=== PATIENT | female | born 1955 | race Caucasian/White ===

== ENCOUNTER 2022-09-08 22:31 | Emergency (ER) | payer OTHER, SELFPAY ==
[2022-09-08] VITALS (13 sets, daily range): BP systolic 140–158; BP diastolic 57–93; PULSE 76–89; RESP 11–27; TEMP 36.7; O2SAT 95–99
[2022-09-08 22:51] LABS: Bilirubin Negative (Negative); Blood Negative (Negative); Clarity Clear (Clear); Glucose Negative (Negative); Ketones 40 mg/dL (Negative); Leukocyte Esterase Trace (Negative); Nitrite Negative (Negative); Specific Gravity 1.025 (1.005-1.025); Urobilinogen 0.2 mg/dL (Up to 0.2); pH 6.5 (5-8)
[2022-09-08 22:57] LABS: Bacteria Few HPF (Negative); C & S Indicated? No/Sq. Contamination; Casts Negative LPF (Negative); Crystals Negative HPF (Negative); Epithelial Cells Moderate HPF (Negative); Mucus Negative (Negative); RBC 0-2 HPF (0-2); WBC 0-2 HPF (0-5)
--- NOTE | 2022-09-08 23:00 | DI.CT_ITS ---
Exam(s) CT RENAL COLIC WO EXAM: CT RENAL COLIC WO CLINICAL HISTORY: right flank pain, hx of stones. TECHNIQUE: Imaging Protocol: Axial computed tomography images with coronal and sagittal reformatted images were created and reviewed CONTRAST MATERIAL: Intravenous: none Oral: None COMPARISON: No exams were available for comparison FINDINGS: VISUALIZED LUNG BASES: No nodules nor pleural effusions evident. ABDOMEN: There is no ascites. LIVER: There are no obvious focal hepatic lesions evident of this noninfused study. GALLBLADDER/BILIARY: Gallbladder surgically absent. CBD is not dilated. PANCREAS: No evidence of pancreatic mass nor dilatation of the pancreatic duct. SPLEEN: Spleen is not enlarged. No obvious intrasplenic lesions. ADRENALS: There are no significant adrenal masses. KIDNEYS:There are multiple small calculi in both kidneys. Also a few bilateral parapelvic cysts. Ho wever, there is also hydroureter on the right side and there is an obstructing calculus at the right ureterovesical junction which measures approximately 6 mm. There are no calculi within the actual ur inary bladder. Left ureterovesical junction is unremarkable.. ABDOMINAL AORTA: Abdominal aorta is not enlarged. LYMPH NODES: There is no retroperitoneal nor paraaortic adenopathy. ABDOMINAL WALL: No evidence of significant anterior abdominal wall nor inguinal hernia. GI: There is no evidence of bowel obstruction, free air, nor abscess. PELVIS: LYMPH NODES: There is no intrapelvic nor inguinal adenopathy. GI: No evidence of appendicitis.No evidence of sigmoid diverticulitis. URINARY BLADDER: No calculi nor obvious masses evident REPRODUCTIVE: Uterus and adnexal regions unremarkable. OSSEOUS: No significant osseous lesions. IMPRESSION: 1. Bilateral nephrolithiasis. Multiple calculi seen in both kidneys. Consider possible medullary sp onge kidney. 2. There is an obstructing 6 millimeter calculus at the right ureterovesical junction with dilatation of the right ureter and upper collecting system above this level. 3. Opposite-left ureter appears unremarkable. RADIATION DOSE DELIVERED: 727.68mGy.cm Total DLP DATA REPOSITORY: All CT scans at this facility are submitted to the National Radiology Data Registry (NRDR) Dose Index Registry (DIR) with the [employer] (A[employer]). RADIATION OPTIMIZATION: All CT scans at this facility use at least one of these dose optimization te chniques: automated exposure control; mA and/or kV adjustment per patient size (includes targeted exa ms where dose is matched to clinical indication); or iterative reconstruction.
--- NOTE | 2022-09-08 23:12 | ED.GENADUL_ITS ---
Discharge Plan Disposition Patient Disposition: Home Condition: Good Discharge Details Clinical Impression: Right kidney stone Primary Care Provider: Saul Ng ED Provider: Markell Lovelace Home Meds and New Rx's Prescriptions: New tamsulosin [Flomax] 0.4 mg capsule 0.4 mg PO DAILY Qty: 7 0RF ketorolac 10 mg tablet 10 mg PO TID 5 Days Qty: 15 0RF No Action irbesartan-hydrochlorothiazide 150-12.5 mg Tablet 1 tab PO DAILY oxycodone-acetaminophen 5-325 mg Tablet 1 tab PO TID PRN Discharge Instructions Instructions: Kidney Stones (ED) Additional Instructions: At this time you have a kidney stone that is 5 mm and right about to pass into the bladder. Please take the ketorolac and Flomax as directed until it passes. Please use a strainer so that you can see when the stone has passed. You can continue to take your oxycodone as needed. If you notice any worsening of your symptoms, or any new symptoms such as vomiting, diarrhea, fever, chills, shortness of breath, chest pain, numbness, weakness, or fainting , please return immediately to the emergency department for reevaluation. Please follow up with your primary care provider as soon as possible for reassessment and reevaluation. As always, it was a pleasure participating in your medical care today. Medical Decision Making 67-year-old female with a past medical history of medullary sponge kidney, cholecystectomy, tubal ligation, 2 C-sections, previous multiple kidney stones, presents today for right flank pain. Patient states that it started about 4 days ago. It was mild on initial onset, but has gradually worsened. She states that it feels very similar to her previous kidney stones. She admits to nausea. She denies diarrhea. She denies any urinary change otherwise. No fever or chills. She denies any chest pain or shortness of breath. No other complaints at this time. No other modifying factors. Physical exam demonstrates an in pain individual, right-sided CVA tenderness. Abdomen itself is nonacute nonsurgical in nature. Concern for kidney stone, less likely appendicitis. We will treat the patient's pain, gently hydrate, get a CT scan for further assessment, monitor closely and reassess. 1:01 AM Laboratory work-up demonstrates stable electrolytes, mildly elevated white count but no bandemia. Renal function demonstrates a creatinine of 1.2. Urinalysis shows no significant WBCs, or nitrites. Only trace leuk esterase. No evidence of infection clinically. On reassessment patient feels notably better, she feels well. CT scan shows evidence of a 5 mm calculus at the right ureterovesicular junction. Patient feels well and would like to go home. No indication for admission or stenting at this time. We will give Flomax for home, recommend continued hydration. No clinical evidence of a septic stone. Discussed red flags for which to return. I have extensively reviewed the treatment plan and discharge instructions with the patient and their family. I have addressed all patient concerns at this time. The patient and family was made aware of what symptoms to monitor for that would warrant a return to the emergency department. Discussed the plan with the patient and family, they demonstrate verbal understanding and agreement with our assessment and plan at this time. The documentation in this chart was dictated using [employer] dictation software. Please excuse any dictation errors. FINDINGS: Lungs: Minimal dependent subsegmental atelectasis. Liver: No hepatic masses on noncontrast imaging. Gallbladder and bile ducts: Cholecystectomy. Typical caliber of the CBD for a post cholecystectomy patient. Pancreas: No gross pathology in the pancreas on noncontrast imaging. Spleen: No splenomegaly or focal lesions. Adrenal glands: Miniscule incidental benign left adrenal angiomyolipoma. Kidneys and ureters: 5 mm calculus at the right ureteral vesicular junction causing moderate to severe right hydronephrosis. Bilateral nephrolithiasis subcentimeter and nonobstructive on the left. Bilateral parapelvic cysts are present in both kidneys. No left hydronephrosis. Stomach and bowel: No gross pathology in the small bowel without IV contrast. No colitis or significant diverticular disease. Appendix: No evidence of appendicitis Intraperitoneal space: No free air. No significant fluid collection. Vasculature: No abdominal aortic aneurysm. Lymph nodes: No significantly enlarged lymph nodes. Urinary bladder: Unremarkable as visualized. Reproductive: Unremarkable as visualized. Bones/joints: Mild thoracolumbar levoscoliosis. Minor chronic loss of height superior L4 endplate. Degenerative changes in the spine. No acute fracture or subluxation. Soft tissues: Tiny fat-containing umbilical hernia. IMPRESSION: 1. 5 mm calculus at the right ureteral vesicular junction causing moderate to severe right hydronephrosis. 2. Bilateral nephrolithiasis subcentimeter and nonobstructive on the left. 3. Incidental findings as described. Thank you for allowing us to participate in the care of your patient. Dictated and Authenticated by: Lluvia Rios MD 09/09/2022 12:54 AM Eastern Time ([place] & [place]) HPI General Date/Time Provider Initiated Documentation: 09/08/22 22:33 . HPI Narrative: 67-year-old female with a past medical history of medullary sponge kidney, cholecystectomy, tubal ligation, 2 C-sections, previous multiple kidney stones, presents today for right flank pain. Patient states that it started about 4 days ago. It was mild on initial onset, but has gradually worsened. She states that it feels very similar to her previous kidney stones. She admits to nausea. She denies diarrhea. She denies any urinary change otherwise. No fever or chills. She denies any chest pain or shortness of breath. No other complaints at this time. No other modifying factors. Related Data Home Medications Medication Instructions Recorded Confirmed irbesartan 150 1 tab PO DAILY 09/08/22 09/08/22 mg-hydrochlorothiazide 12.5 mg tablet oxycodone-acetaminophen 5 mg-325 1 tab PO TID PRN 09/08/22 09/08/22 mg tablet ketorolac 10 mg tablet 10 mg PO TID 5 days #15 tabs 09/09/22 tamsulosin 0.4 mg capsule (Flomax) 0.4 mg PO DAILY #7 caps 09/09/22 Previous Rx's Medication Instructions Recorded ketorolac 10 mg tablet 10 mg PO TID 5 days #15 tabs 09/09/22 tamsulosin 0.4 mg capsule (Flomax) 0.4 mg PO DAILY #7 caps 09/09/22 Allergies Allergy/AdvReac Type Severity Reaction Status Date / Time No Known Allergies Allergy Unverified 09/08/22 22:48 General Stated Complaint: FlankPain SUSAN: 3 Review of Systems All systems reviewed & are unremarkable except as noted in HPI and below PFSH All Active Problems (Updated 09/09/22 @ 00:58 by Markell Lovelace DO) Right kidney stone (Acute) Social History Smoking/Tobacco Use Status: Never Smoking risk assessment performed?: Yes Substance use type: does not use Exam Narrative Exam Narrative: 1.Const: Well-nourished, Well-developed, appearing stated age 2.Eyes: PERRL, no conjunctival injection, and symmetrical lids. 3.ENT: Atraumatic external nose and ears. Moist MM. Neck: Symmetric, trachea midline, No thyromegaly. 4.CVS: +S1/S2, No murmurs or gallops. Peripheral pulses 2+ and equal in all extremities. Brisk capillary refill in all extremities. 5.RESP: Unlabored respiratory effort. Clear to auscultation bilaterally. No wheezes rales or rhonchi 6.GI: Soft, Nontender/Nondistended, mild right CVA tenderness. No guarding or rebound. 7.MSK: Normocephalic/Atraumatic, Extremities w/o deformity or ttp No cyanosis or clubbing, Normal movement of all extremities 8.Skin: Warm, Dry. No rashes or lesions. 9.Neuro: overnight stocker II-XII grossly intact. Sensation grossly intact, no focal neurologic deficits. 10.Psych: (AAO) x3. Appropriate mood and affect Course Vital Signs Vital signs: Vital Signs Temperature 36.7 C 09/08/22 22:42 Pulse 85 09/08/22 22:42 Respiratory Rate 26 H 09/08/22 22:42 Blood Pressure 152/91 H 09/08/22 22:42 Pulse Oximetry 98 09/08/22 22:42 Temperature 36.7 C 09/08/22 22:42 Temperature Source Temporal Artery Scan 09/08/22 22:42 Pulse 85 09/08/22 22:42 Respiratory Rate 26 H 09/08/22 22:42 Respiratory Effort Normal 09/08/22 22:42 Blood Pressure 152/91 H 09/08/22 22:42 Blood Pressure Position Supine 09/08/22 22:42 Pulse Oximetry 98 09/08/22 22:42 Oxygen Delivery Method Room Air 09/08/22 22:42 Oxygen Flow Rate 0 09/08/22 22:42 Pain Level 10 09/08/22 22:42 Lab/Test Results Lab/Test Results: Laboratory Tests Range/Units 09/08/22 22:40 Urine Color (Yellow) Yellow Urine Clarity (Clear) Clear Urine pH (5-8) 6.5 Ur Specific [place] (1.005-1.025) 1.025 Urine Protein (Negative) mg/dL Negative Urine Ketones (Negative) mg/dL 40 H Urine Blood (Negative) Negative Urine Nitrite (Negative) Negative Urine Bilirubin (Negative) Negative Urine Urobilinogen (Up to 0.2) mg/dL 0.2 Ur Leukocyte Esterase (Negative) Trace H Urine RBC (0-2) HPF 0-2 Urine WBC (0-5) HPF 0-2 Ur Epithelial Cells (Negative) HPF Moderate Urine Crystals (Negative) HPF Negative Urine Bacteria (Negative) HPF Few Urine Casts (Negative) LPF Negative Urine Mucus (Negative) Negative Ur Culture Indicated? No/Sq. Contamination Urine Glucose (Negative) mg/dL Negative
[2022-09-08] MEDS: MORPHine 4 MG/ML SYR IVP (23:35)
[2022-09-08] MEDS: Normal Saline 1,000 ML 1000 ML IV (23:35)
[2022-09-08] MEDS: Ketorolac 15 MG/ML VIAL IVP (23:36)
[2022-09-08] MEDS: Ondansetron 4 MG/2 ML VIAL IVP (23:36)
[2022-09-08] MEDS: Tamsulosin 0.4 MG CAPCR PO (23:36)
[2022-09-08 23:44] LABS: Abs Immature Grans 0.05 10^3/uL (0.0-0.06); Absolute Basophil Count 0.04 10^3/uL (0.0-0.2); Absolute Eosinophil Count 0.07 10^3/uL (0.0-0.7); Absolute Lymphocyte Count 2.65 10^3/uL (1.2-3.4); Absolute Monocyte Count 1.01 10^3/uL (0.1-0.8); Absolute Neutrophil Count 10.25 10^3/uL (1.2-6.7); Basophils % 0.3; Eosinophils % 0.5; HCT 43.1 % (36.0-46.0); HGB 14.2 g/dL (11.2-15.7); Immature Grans % 0.4; Lymphocytes % 18.8; MCH 27.7 pg (27.0-33.0); MCHC 32.9 % (32.0-36.0); MCV 84 fL (80-95); MPV 10.9 fL (8.0-11.0); Monocytes % 7.2; Neutrophils % 72.8; Platelet Count 301 10^3/uL (130-400); RBC 5.13 10^6/uL (3.93-5.22); RDW 13.6 % (11.7-14.6); RDW-SD 42.2 fL; WBC 14.08 10^3/uL (4.4-10.8)
[2022-09-08 23:59] LABS: ALT 41 U/L (14-59); AST 21 U/L (15-37); Alkaline Phosphatase 117 U/L (46-116); Anion Gap 9.9 mmol/L (3-11); BUN 21 mg/dL (7-18); Bilirubin, Total 0.4 mg/dL (0.2-1.0); CO2 26.1 mmol/L (21.0-32.0); CREATININE 1.2 mg/dL (0.55-1.02); Calcium 9.7 mg/dL (8.5-10.1); Chloride 98 mmol/L (98-107); Estimated GFR 50.23 (mL/min/1.73m2); Glucose 142 mg/dL (74-106); Lipase 33 U/L (16-77); Potassium 3.8 mmol/L (3.5-5.1); Sodium 134 mmol/L (136-145); Total Protein 8.5 g/dL (6.4-8.2)
[2022-09-09] VITALS: PULSE 79; RESP 14; O2SAT 96
[2022-09-09 00:01] VITALS: BP 140/65; PULSE 79; RESP 12; O2SAT 96
--- NOTE | 2022-09-09 00:54 | DI.VRAD_ITS ---
PROCEDURE INFORMATION: Exam: CT Abdomen And Pelvis Without Contrast Exam date and time: 09/09/2022 00:12 Age: 67 years old Clinical indication: Abdominal pain; Flank; Right; Prior surgery; Surgery date: 6+ months; Surgery type: Appendectomy; Patient HX: PT states h/o medullary sponge kidneys TECHNIQUE: Imaging protocol: Computed tomography of the abdomen and pelvis without contrast. Radiation optimization: All CT scans at this facility use at least one of these dose optimization techniques: automated exposure control; mA and/or kV adjustment per patient size (includes targeted exams where dose is matched to clinical indication); or iterative reconstruction. COMPARISON: No relevant prior studies available. FINDINGS: Lungs: Minimal dependent subsegmental atelectasis. Liver: No hepatic masses on noncontrast imaging. Gallbladder and bile ducts: Cholecystectomy. Typical caliber of the CBD for a post cholecystectomy patient. Pancreas: No gross pathology in the pancreas on noncontrast imaging. Spleen: No splenomegaly or focal lesions. Adrenal glands: Miniscule incidental benign left adrenal angiomyolipoma. Kidneys and ureters: 5 mm calculus at the right ureteral vesicular junction causing moderate to severe right hydronephrosis. Bilateral nephrolithiasis subcentimeter and nonobstructive on the left. Bilateral parapelvic cysts are present in both kidneys. No left hydronephrosis. Stomach and bowel: No gross pathology in the small bowel without IV contrast. No colitis or significant diverticular disease. Appendix: No evidence of appendicitis. Intraperitoneal space: No free air. No significant fluid collection. Vasculature: No abdominal aortic aneurysm. Lymph nodes: No significantly enlarged lymph nodes. Urinary bladder: Unremarkable as visualized. Reproductive: Unremarkable as visualized. Bones/joints: Mild thoracolumbar levoscoliosis. Minor chronic loss of height superior L4 endplate. Degenerative changes in the spine. No acute fracture or subluxation. Soft tissues: Tiny fat-containing umbilical hernia. IMPRESSION: 1. 5 mm calculus at the right ureteral vesicular junction causing moderate to severe right hydronephrosis. 2. Bilateral nephrolithiasis subcentimeter and nonobstructive on the left. 3. Incidental findings as described. Dictated and Authenticated by: Lluvia Rios MD. Ordering:JANIS Guillaume MD
[2022-09-09] MEDS: Ketorolac 10 MG TAB PO (01:21)
[2022-09-09] MEDS: Acetaminophen 500 MG TAB 1000 MG PO (01:22)
[2022-09-09 01:33] VITALS: BP 129/53; PULSE 85; RESP 20; TEMP 36.9; O2SAT 94
== END 2022-09-09 01:46 | disposition home or self-care (01) ==
PROVIDERS: Registered Nurse Emergency; Emergency Provider Student in an Organized Health Care Education/Training Program
DX: N20.0 Calculus of kidney (principal); Z87.442 Personal history of urinary calculi
CPT/HCPCS: 80053; 83690; 96361; 96374; 96375; 99285; 74176; 81003; 81015; 85025; 99284; J1885; J2270; J2405

== ENCOUNTER 2023-11-17 12:15 | Outpatient (REF) | payer SELFPAY | END 2023-11-17 12:16 | disposition home or self-care (01) | LOC: LBN 12:15 | PROVIDERS: Visit Provider Physician Assistant | DX: N39.0 Urinary tract infection, site not specified (principal) | CPT/HCPCS: 87077; 87086; 87186 ==

== ENCOUNTER 2023-12-26 23:59 | Outpatient (REF) | payer SELFPAY | END 2023-12-27 | disposition home or self-care (01) | LOC: LBN 23:59 | PROVIDERS: Visit Provider Emergency Medicine Emergency Medical Services | DX: N39.0 Urinary tract infection, site not specified (principal) | CPT/HCPCS: 87077; 87086; 87186 ==